=== PATIENT | female | born 1970 | race Caucasian/White ===

== ENCOUNTER → 2017-06-18 11:21 | Outpatient (CLI) | payer MEDICAID, SELFPAY ==
--- NOTE | 2017-06-18 11:30 | XR_ITS ---
XR shoulder LT min 2V HISTORY: ITS.REASON: STRUCK BY FALLING OBJECT,LEFT SHOULDER PAIN ORDERING PHYSICIAN: Roman Meyer MD PATIENT AGE: 47 years COMPARISON: None FINDINGS: No fracture or dislocation. No lytic or blastic change. There is normal mineralization. The joint spaces are well-preserved. No significant degenerative/arthritic changes. No erosive changes evident. IMPRESSION: Negative, no acute finding
== END ==
PROVIDERS: PCP Internal Medicine Adolescent Medicine; Visit Provider Internal Medicine Adolescent Medicine
DX: M25.512 Pain in left shoulder (principal); W20.8XXD Other cause of strike by thrown, projected or falling object, subsequent encounter
CPT/HCPCS: 73030